=== PATIENT | female | born 1970 | race Caucasian/White ===

== ENCOUNTER → 2020-10-14 08:50 | Outpatient (CLI) | payer BC, SELFPAY ==
[2020-10-15 08:01] LABS: Covid-19 Nasal PCR Sendout P&C POSITIVE
== END ==
PROVIDERS: PCP Family Medicine; Visit Provider Family Medicine
DX: Z20.828 Contact with and (suspected) exposure to other viral communicable diseases (principal); U07.1 COVID-19
CPT/HCPCS: U0004